=== PATIENT | male | born 1970 | race Caucasian/White ===

== ENCOUNTER → 2017-07-15 | Outpatient (CLI) | payer BC ==
[2017-07-15 13:51] LABS: CH 29.5; CHCM 33.5; HCT 46.5 % (39.0-53.0); HDW 2.84; HGB 15.4 gm/dL (13.0-17.5); MCH 29.3 pg (25.0-35.0); MCHC 33.1 g/dL (31.0-37.0); MCV 88.7 fL (80.0-100.0); Mean Platelet Volume 7.8; RBC 5.25 m/uL (4.30-5.90); RDW 15.1 % (11.5-15.5); WBC 5.9 k/uL (3.8-10.6)
[2017-07-15 15:43] LABS: Prostate Specific Antigen 2.21 ng/mL (0.00-4.00)
[2017-07-15 19:22] LABS: Prolactin 9.5 ng/mL (2.1-17.7)
[2017-07-15 21:31] LABS: ACTH 18.1 pg/mL (0.00-45.99)
== END | disposition home or self-care (01) ==
LOC: LABWHC1 13:17
PROVIDERS: ATTEND Internal Medicine Endocrinology, Diabetes & Metabolism
DX: E29.1 Testicular hypofunction (principal); R53.83 Other fatigue
CPT/HCPCS: 36415; 82024; 82533; 84146; 84153; 84403; 84439; 84443; 85027